=== PATIENT | male | born 1970 | race Caucasian/White ===

== ENCOUNTER 2020-03-13 03:26 | Inpatient (IN) | payer BC, SELFPAY ==
[2020-03-13] MEDS ORDERED: Zolpidem Tartrate 5 MG TAB PO PRN (05:14)
[2020-03-13] MEDS ORDERED: traMADol HCl 50 MG TAB PO PRN (05:14)
[2020-03-13] MEDS ORDERED: Morphine 2 MG/ML SYRINGE SLOW IVP PRN (05:14)
[2020-03-13] MEDS ORDERED: DOPamine 400 MG/D5W 250 ML 250 ML IVPB SCH (05:30)
[2020-03-13 05:42] VITALS: BMI 27.5
[2020-03-13] MEDS: Sodium Chloride 0.9% 1,000 ML IV SCH ×2 (06:05→15:43)
--- NOTE | 2020-03-13 06:17 | CON ---
ADMISSION HISTORY AND PHYSICAL. DATE OF ADMISSION: 03/13/2020 CHIEF COMPLAINT: Chest pain. HISTORY OF PRESENT ILLNESS: Mr. Abdi is a pleasant 50-year-old white gentleman, who comes to the hospital for [place] for an inferior ST-elevation SC. He was woken up at about 2:45 a.m. by crushing midsternal chest pain. 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 This was wired, ballooned opened, and successfully stented with a bare-metal stent. He received a 2.5 x 16 mm bare-metal stent. His pain was resolved after stenting and he did have a brief episode of hypotension and nausea, but eventually everything improved. He was on dopamine briefly. He tells me that he has been having heartburn for about the last year. He has been taking heartburn medicines here and there over the counter mostly. He does not really go to the doctor for anything has not had the need for this. PAST MEDICAL HISTORY: None, except for GERD possibly. PAST SURGICAL HISTORY: Leg surgery about 25 years ago here after a broken leg. FAMILY HISTORY: No early coronary artery disease. MEDICATIONS: None. ALLERGIES: NO KNOWN DRUG ALLERGIES. SOCIAL HISTORY: No tobacco. He admits to social alcohol use. No drug use. He is a truck assembler. He lives in [place]. He is currently in [place], staying with an uncle who is helping him fix his truck. REVIEW OF SYSTEMS: A 12-point review of systems was done and was all negative unless stated in the history of present illness. PHYSICAL EXAMINATION: VITAL SIGNS: Temperature 97.2, pulse 60, respiratory rate 18, saturating 98% on 2 L nasal cannula, and blood pressure 116/62. GENERAL: Awake, alert, oriented x3. No distress. HEENT: Normocephalic and atraumatic. NECK: Supple. LUNGS: Clear. CARDIOVASCULAR: S1 and S2. No S3 or S4. No murmurs. ABDOMEN: Soft. Positive bowel sounds. EXTREMITIES: No edema. SKIN: Warm and dry. LABORATORY WORK: Laboratory work was reviewed. White count of 7.4, hemoglobin of 14.9, hematocrit 46.9, platelet count 216. Coags were unremarkable. Chemistries unremarkable except for potassium of 3.4. Initial troponin was undetectable with a CK-MB of 1.3 and CK of 255. Lipase was 39, creatinine was 1.17 with GFR of 67. Chest x-ray at outside facility was unremarkable. EKG was reviewed, inferior ST elevations with reciprocal changes. ASSESSMENT: Inferior ST-elevation myocardial infarction. PLAN: 1. Status post bare-metal stent to an RPL branch. 2. Normal LV function on LV gram about 70%, this was while on dopamine. This will be weaned off later today, an echocardiogram will be done in the morning and we will see what his LV function is, if there is any impaired function. 3. High dose statin, aspirin for life and Brilinta for at least one month, but ideally a whole year. 4. We will add beta-bob and DEBRA inhibitor as blood pressure and heart rate allow. Currently, he is still borderline low and was just taken off dopamine, so we will hold off for now. 5. PPI for stress ulcer prophylaxis. 6. Cardiac rehab and ambulation for DVT prophylaxis. 7. Sheath will be pulled once ACT is under 200 and then he will lay flat for 2 hours. 8. Disposition, pending clinical evaluation. 9. Full code. Job ID: [id number] MTDD
[2020-03-13 07:00] LABS: Anion Gap 12 mmol/L (10-20); BUN (Urea Nitrogen) 17 mg/dL (8.9-20.6); Calc. Creatinine Clearance 125 mL/min (70-130); Calcium 8.3 mg/dL (7.8-10.44); Carbon Dioxide 23 mmol/L (22-29); Cardiac Risk 6.1 (Less than 4.5); Chloride 107 mmol/L (98-107); Cholesterol 252 mg/dl (< 200 Desired); Estimated GFR-MDRD Greater than 90; Glucose 125 mg/dL (70-105); HDL Cholesterol 41 mg/dL (>60 Neg Risk); LDL Cholesterol, Calculated 180 mg/dL; Potassium 4.1 mmol/L (3.5-5.1); Sodium 138 mmol/L (136-145); Triglycerides 154 mg/dL (Less than 150)
[2020-03-13 07:27] LABS: Troponin I 14.409 ng/mL (< 0.028)
[2020-03-13 07:27] LABS: CKMB 103.7 ng/mL (0-6.6)
[2020-03-13] MEDS: TICAGRELOR 90 MG TABLET PO SCH ×2 (08:15→22:11)
[2020-03-13] MEDS: Aspirin Chewable 81 MG TAB PO SCH (08:15)
[2020-03-13 08:17] LABS: Free T4 (Free Thyroxine) 1.04 ng/dL (0.70-1.48); Thyroid Stimulating Hormone 1.2116 uIU/mL (0.35-4.94)
[2020-03-13] MEDS ORDERED: Iopamidol 370 76% 100 ML VIAL ONE (09:19)
[2020-03-13] MEDS ORDERED: Iopamidol 370 76% 50 ML VIAL FS ONE (09:19)
[2020-03-13 12:29] LABS: CKMB 186.2 ng/mL (0-6.6)
--- NOTE | 2020-03-13 14:03 | EKG ---
Test Reason : Blood Pressure : / mmHG Vent. Rate : 094 BPM Atrial Rate : 094 BPM P-R Int : 134 ms QRS Dur : 072 ms QT Int : 352 ms P-R-T Axes : 029 017 028 degrees QTc Int : 440 ms Normal sinus rhythm Inferior infarct , age undetermined cannot be excluded Abnormal ECG No previous ECGs available Confirmed by SANDRA TABARES ([id number]) on 03/13/2020 2:02:51 PM Referred By: YANELY Confirmed By:SANDRA TABARES
[2020-03-13 14:04] LABS: Troponin I 44.895 ng/mL (< 0.028)
[2020-03-13] MEDS: Atorvastatin Calcium 40 MG TAB PO SCH (22:10)
[2020-03-14 03:59] LABS: #Eosinphils 0.1 thou/uL (0.0-0.7); #Lymphocytes 1.8 thou/uL (1.20-3.40); #Monocytes 0.7 thou/uL (0.11-0.59); #Neutrophils 4.7 thou/uL (1.40-6.50); %Basophils 0.5 % (0.0-1.0); %Eosinophils 1.6 % (0.0-10.0); %Lymphocytes 24.6 % (21.0-51.0); %Monocytes 9.9 % (0.0-10.0); %Neutrophils 63.5 % (42.0-75.0); Hemoglobin 13.6 g/dL (14.0-18.0); Mean Corpuscular HGB CONC 34.5 g/dL (32.0-36.0); Mean Corpuscular Hemoglobin 32.2 pg (27.0-31.0); Mean Corpuscular Volume 93.1 fL (78.0-98.0); Mean Platelet Volume 8.1 fL (7.4-10.4); Platelet Count 173 thou/uL (130-400); RBC Distribution Width 11.3 % (11.5-14.5); Red Blood Cell (RBC) Count 4.23 mill/uL (4.70-6.10); White Blood Cell (WBC) Count 7.3 thou/uL (4.8-10.8)
[2020-03-14 04:13] LABS: ALT (SGPT) 43 U/L (8-55); AST (SGOT) 115 U/L (5-34); Albumin 3.6 g/dL (3.5-5.0); Alkaline Phosphatase 65 U/L (40-110); Anion Gap 10 mmol/L (10-20); BUN (Urea Nitrogen) 13 mg/dL (8.9-20.6); Bilirubin, Total 0.6 mg/dL (0.2-1.2); Calc. Creatinine Clearance 93 mL/min (70-130); Calcium 8.1 mg/dL (7.8-10.44); Carbon Dioxide 25 mmol/L (22-29); Chloride 105 mmol/L (98-107); Estimated GFR-MDRD 69; Globulin 2.5 g/dL (2.4-3.5); Glucose 129 mg/dL (70-105); Potassium 3.6 mmol/L (3.5-5.1); Protein, Total 6.1 g/dL (6.0-8.3); Sodium 136 mmol/L (136-145)
[2020-03-14 04:17] LABS: Critical Call Chem Troponin I RESULT DECREASING
[2020-03-14 04:36] LABS: CKMB 52.4 ng/mL (0-6.6); Critical Call CKMB RESULT DECREASING
[2020-03-14] MEDS: Aspirin Chewable 81 MG TAB PO SCH (08:49)
[2020-03-14] MEDS: TICAGRELOR 90 MG TABLET PO SCH ×2 (08:50→20:38)
--- NOTE | 2020-03-14 16:16 | PRG ---
DATE OF SERVICE: 03/14/2020 SUBJECTIVE: Mr. Abdi is currently doing well. No current complaints. He is ambulating without issues. CURRENT MEDICATIONS: 1. Aspirin. 2. Atorvastatin. 3. Protonix. 4. Brilinta. OBJECTIVE: VITAL SIGNS: Blood pressure 124/78, pulse 76, and temperature 97.9. LUNGS: Clear to auscultation. HEART: Regular rate and rhythm. ABDOMEN: Soft, nontender, and nondistended. EXTREMITIES: No edema. PERTINENT LABORATORY DATA: Hemoglobin 13.6. Creatinine 1.1. Peak troponin 44. Peak MB of 186. IMPRESSION: Acute myocardial infarction. RECOMMENDATIONS: 1. Continue aspirin, Brilinta, and statin. 2. Add low-dose beta-bob. 3. Continue ambulation. 4. Plan is to discharge in a.m. Job ID: [id number]
[2020-03-14] MEDS: Atorvastatin Calcium 40 MG TAB PO SCH (20:37)
[2020-03-15 04:58] LABS: #Eosinphils 0.1 thou/uL (0.0-0.7); #Lymphocytes 1.9 thou/uL (1.20-3.40); #Monocytes 0.6 thou/uL (0.11-0.59); #Neutrophils 3.7 thou/uL (1.40-6.50); %Basophils 0.7 % (0.0-1.0); %Eosinophils 2.3 % (0.0-10.0); %Lymphocytes 29.5 % (21.0-51.0); %Monocytes 9.9 % (0.0-10.0); %Neutrophils 57.6 % (42.0-75.0); Hemoglobin 14.1 g/dL (14.0-18.0); Mean Corpuscular HGB CONC 33.2 g/dL (32.0-36.0); Mean Corpuscular Hemoglobin 30.7 pg (27.0-31.0); Mean Corpuscular Volume 92.6 fL (78.0-98.0); Mean Platelet Volume 8.3 fL (7.4-10.4); Platelet Count 178 thou/uL (130-400); RBC Distribution Width 11.2 % (11.5-14.5); Red Blood Cell (RBC) Count 4.58 mill/uL (4.70-6.10); White Blood Cell (WBC) Count 6.4 thou/uL (4.8-10.8)
[2020-03-15 05:19] LABS: Anion Gap 11 mmol/L (10-20); BUN (Urea Nitrogen) 12 mg/dL (8.9-20.6); Calc. Creatinine Clearance 107 mL/min (70-130); Calcium 8.7 mg/dL (7.8-10.44); Carbon Dioxide 26 mmol/L (22-29); Chloride 104 mmol/L (98-107); Estimated GFR-MDRD 82; Glucose 119 mg/dL (70-105); Sodium 137 mmol/L (136-145)
[2020-03-15] MEDS: Aspirin Chewable 81 MG TAB PO SCH (08:51)
[2020-03-15] MEDS: TICAGRELOR 90 MG TABLET PO SCH (08:51)
[2020-03-15 10:10] VITALS: BP 120/85; TEMP 97.6
[2020-03-15 10:53] LABS: Hemoglobin A1c 5.6 % (4.0-6.0)
== END 2020-03-15 11:04 | disposition home or self-care (01) | DRG 249 ==
LOC: CCL 03:26 → CCU 03:36 → 2NO 15:38
PROVIDERS: ADMIT Internal Medicine Cardiovascular Disease; ATTEND Internal Medicine Cardiovascular Disease
PROC: 02703DZ Dilation of Coronary Artery, One Artery with Intraluminal Device, Percutaneous Approach (ICD-10-PCS; principal; 2020-03-13)
PROC: 4A023N7 Measurement of Cardiac Sampling and Pressure, Left Heart, Percutaneous Approach (ICD-10-PCS; 2020-03-13)
PROC: B2151ZZ Fluoroscopy of Left Heart using Low Osmolar Contrast (ICD-10-PCS; 2020-03-13)
PROC: B2111ZZ Fluoroscopy of Multiple Coronary Arteries using Low Osmolar Contrast (ICD-10-PCS; 2020-03-13)
DX: I21.19 ST elevation (STEMI) myocardial infarction involving other coronary artery of inferior wall (principal); K21.9 Gastro-esophageal reflux disease without esophagitis
CPT/HCPCS: 36415; 80048; 80053; 80061; 82553; 83036; 84439; 84443; 84484; 85025; 85347; 92941; 93005; 93010; 93306; 93458; 93798; C1876; Q9967